=== PATIENT | female | born 1945 | race Caucasian/White ===

== ENCOUNTER 2017-07-03 07:23 | Day surgery (SDC) | payer MEDICARE, OTHER ==
[~2017-07-03 07:23] MED LIST: Acetaminophen TAB* 325 MG PO PRN; Buffered Lidocaine 0.9% SYRIN* 5 ML/SYR SYRINGE INTRADERM ONE; Midazolam* 1 MG/ML 2 ML VIAL (2 MG) ONE
[2017-07-03] MEDS ORDERED: Midazolam* 1 MG/ML 2 ML VIAL (2 MG) ONE (09:33)
[2017-07-03 10:09] VITALS: BP 120/55
--- NOTE | 2017-07-03 10:39 | OP ---
DATE OF OPERATION: 07/03/2017. DATE OF : 1945. SURGEON: Seth Reddy M.D. PREOPERATIVE DIAGNOSIS: Cataract right eye. POSTOPERATIVE DIAGNOSIS: Cataract right eye. OPERATIVE PROCEDURE: Extracapsular cataract extraction with intraocular lens implant right eye with an artificial lens. PROCEDURE: The patient was brought to the operating room after being given 1/2% Alcaine with epineph rine drops in the preoperative area. The eye was prepped and draped in the usual sterile fashion. S terile drape and eyelid speculum were placed. Again, topical 1/2% Alcaine with epinephrine was given . A paracentesis incision was made at the 9 o'clock position with the No.75 blade. Clear cornea inc ision 2.2 x 2.2-mm was created at the 12 o'clock position starting at the anterior limbus using the 2 .2-mm keratome. The anterior chamber was irrigated with 0.4 mL of 1% non-preservative intracameral l idocaine and filled with DisCoVisc. A capsulorrhexis was completed using the cystotome and the Utrat a forceps. Hydrodissection was performed with balanced salt solution. The lens nucleus was removed w ith the Phacoemulsification handpiece without incident. Cortex was removed with the irrigation-aspir ation handpiece. The capsular bag was re-inflated using DisCoVisc and an [id number] 21 implant was inser werner with the shooter. The irrigation-aspiration handpiece was used to remove all residual DisCoVisc. The eye was refilled with balanced salt solution and the wound checked and found to be watertight. Topical Maxitrol drops were given. [id number]/[facility] #: [id number]
== END 2017-07-03 10:20 | disposition home or self-care (01) ==
LOC: OREAST 07:23
PROVIDERS: ATTEND Specialist
DX: H25.811 Combined forms of age-related cataract, right eye (principal); I08.1 Rheumatic disorders of both mitral and tricuspid valves
CPT/HCPCS: J2250; V2632

== ENCOUNTER 2017-07-10 07:01 | Day surgery (SDC) | payer MEDICARE, OTHER ==
[~2017-07-10 07:01] MED LIST changes: -Midazolam* 1 MG/ML 2 ML VIAL (2 MG) ONE
[2017-07-10] MEDS ORDERED: Midazolam* 1 MG/ML 2 ML VIAL (2 MG) ONE ×2 (08:55→09:08)
[2017-07-10 09:56] VITALS: BP 122/69
--- NOTE | 2017-07-10 10:12 | OP ---
DATE OF OPERATION: 07/10/2017. DATE OF : 1945. SURGEON: Seth Reddy M.D. PREOPERATIVE DIAGNOSIS: Cataract left eye. POSTOPERATIVE DIAGNOSIS: Cataract left eye. OPERATIVE PROCEDURE: Extracapsular cataract extraction with intraocular lens implant left eye. PROCEDURE: The patient was brought to the operating room after being given 1/2% Alcaine with epineph rine drops in the preoperative area. The eye was prepped and draped in the usual sterile fashion. S terile drape and eyelid speculum were placed. Again, topical 1/2% Alcaine with epinephrine was given . A paracentesis incision was made at the 3 o'clock position with the No.75 blade. Clear cornea inc ision 2.2 x 2.2-mm was created at the 6 o'clock position starting at the anterior limbus using the 2. 2-mm keratome. The anterior chamber was irrigated with 0.4 mL of 1% non-preservative intracameral li docaine and filled with DisCoVisc. A capsulorrhexis was completed using the cystotome and the Utrata forceps. Hydrodissection was performed with balanced salt solution. The lens nucleus was removed wi th the Phacoemulsification handpiece without incident. Cortex was removed with the irrigation-aspira tion handpiece. The capsular bag was re-inflated using DisCoVisc and an SN60WF 21.5 implant was inse rted with the shooter. The irrigation-aspiration handpiece was used to remove all residual DisCoVisc . The eye was refilled with balanced salt solution and the wound checked and found to be watertight. Topical Maxitrol drops were given. [id number]/[facility] #: [id number]
[2017-07-10] MEDS ORDERED: Phenylephrine 2.5% OPTH.SOL* 2 ML BTL ONE (11:01)
[2017-07-10] MEDS ORDERED: Ketorolac 0.5% OPHTH (NF) 0.5 % 5 ML BTL ONE (11:01)
[2017-07-10] MEDS ORDERED: Povidone Iodine 5% OPTH* 30 ML BTL ONE (11:01)
[2017-07-10] MEDS ORDERED: Proparacaine 0.5% OPHTH.SOL* 15 ML BTL ONE (11:01)
[2017-07-10] MEDS ORDERED: acetaZOLAMIDE TAB* 250 MG ONE (11:01)
[2017-07-10] MEDS ORDERED: Lidocaine 2% EPI 1:200000 MPF* 20 ML VIAL ONE (11:01)
[2017-07-10] MEDS ORDERED: Neomycin/Polymy/Dex OPTH.SUSP* MAXITROL 0.1% 5 ML ONE (11:01)
[2017-07-10] MEDS ORDERED: Lidocaine 1% MPF* 2 ML VIAL ONE (11:01)
[2017-07-10] MEDS ORDERED: Cyclopentolate 1% OPTH.SOL* 2 ML BTL ONE (11:01)
== END 2017-07-10 09:52 | disposition home or self-care (01) ==
LOC: OREAST 07:01
PROVIDERS: ATTEND Specialist
DX: H25.812 Combined forms of age-related cataract, left eye (principal); E53.8 Deficiency of other specified B group vitamins; M85.80 Other specified disorders of bone density and structure, unspecified site; E07.89 Other specified disorders of thyroid; I08.1 Rheumatic disorders of both mitral and tricuspid valves
CPT/HCPCS: A9270-GY; J2250; V2632